=== PATIENT | female | born 1980 | race Caucasian/White ===

== ENCOUNTER 2016-06-16 11:23 | Outpatient (CLI) | payer OTHER | END 2016-06-16 11:24 | disposition home or self-care (01) | DX: N91.2 Amenorrhea, unspecified (principal) ==

== ENCOUNTER 2016-07-05 | Outpatient (CLI) | payer OTHER | END 2016-07-05 17:58 | disposition critical access hospital (66) | DX: O46.90 Antepartum hemorrhage, unspecified, unspecified trimester (principal) | CPT/HCPCS: A0425; A0427 ==

== ENCOUNTER 2016-07-05 11:27 | Emergency (ER) | payer OTHER | END 2016-07-05 14:57 | disposition home or self-care (01) | DX: O03.4 Incomplete spontaneous abortion without complication (principal) ==

== ENCOUNTER 2016-07-05 18:06 | Emergency (ER) | payer OTHER ==
[2016-07-05] MEDS ORDERED: SODIUM CHLORIDE 0.9% 1,000 ML IV ONE ×2 (18:25)
[2016-07-05] MEDS ORDERED: HYDROmorphone 1 MG/ML SYRINGE IVP STA (18:39)
[2016-07-05] MEDS ORDERED: HYDROmorphone 1 MG/ML SYRINGE ONE (18:39)
== END 2016-07-05 20:46 | disposition home or self-care (01) ==
DX: O03.9 Complete or unspecified spontaneous abortion without complication (principal)
CPT/HCPCS: 36415; 80048; 85025; 86850; 96374; 99284; J1170

== ENCOUNTER 2016-07-06 10:11 | Outpatient (CLI) | payer OTHER | END 2016-07-06 10:12 | disposition home or self-care (01) | DX: Z01.812 Encounter for preprocedural laboratory examination (principal); O03.4 Incomplete spontaneous abortion without complication; R10.2 Pelvic and perineal pain ==

== ENCOUNTER 2016-07-07 13:01 | Day surgery (SDC) | payer OTHER ==
[~2016-07-07 13:01] MED LIST: LACTATED RINGERS 1,000 ML IV ONE
[2016-07-07] MEDS ORDERED: LACTATED RINGERS 1,000 ML IV ONE (13:10)
[2016-07-07] MEDS ORDERED: ePHEDrine 50 MG/ML VIAL IVP ONE (14:30)
[2016-07-07] MEDS ORDERED: ONDANSETRON 4 MG/2 ML VIAL IVP ONE (14:30)
[2016-07-07] MEDS ORDERED: PROPOFOL 200 MG/20 ML VIAL IVP ONE (14:30)
[2016-07-07] MEDS ORDERED: KETOROLAC 30 MG/ML VIAL IVP ONE (14:30)
[2016-07-07] MEDS ORDERED: fentaNYL 100 MCG/2 ML VIAL IVP ONE (14:30)
[2016-07-07] MEDS ORDERED: MIDAZOLAM 2 MG/2 ML VIAL IVP ONE (14:30)
[2016-07-07] MEDS ORDERED: LIDOCAINE-MPF 2% 5 ML VIAL IM ONE (14:30)
[2016-07-07] MEDS ORDERED: MEPERIDINE 50 MG/ML SYRINGE ONE (15:04)
== END 2016-07-07 13:02 | disposition home or self-care (01) ==
PROC: 10D17ZZ Extraction of Products of Conception, Retained, Via Natural or Artificial Opening (ICD-10-PCS; principal; 2016-07-07 14:00)
DX: O03.1 Delayed or excessive hemorrhage following incomplete spontaneous abortion (principal); Z83.3 Family history of diabetes mellitus; Z80.8 Family history of malignant neoplasm of other organs or systems
CPT/HCPCS: 59812; 81003; 85025; J7120

== ENCOUNTER 2017-02-12 10:12 | Outpatient (CLI) | payer OTHER | END 2017-02-12 10:13 | disposition home or self-care (01) | LOC: LAB 10:12 | PROVIDERS: ATTEND Obstetrics & Gynecology | DX: Z32.01 Encounter for pregnancy test, result positive (principal) | CPT/HCPCS: 36415; 84702 ==

== ENCOUNTER 2017-02-13 08:17 | Outpatient (CLI) | payer OTHER ==
--- NOTE | 2017-02-13 10:18 | Ultrasound Report ---
PELVIC ULTRASOUND: 02/13/2017 CLINICAL INDICATION: , no IUP seen in office. TECHNIQUE: Transabdominal pelvic ultrasound performed for global evaluation. Transvaginal pelvic ul trasound performed for detailed evaluation. Real-time scanning performed and static images obtained. FINDINGS: The uterus is anteverted, measuring 11.3 x 4.8 x 6.5 cm. The endometrial echo complex vy sures 14 mm. There is no evidence of a gestational sac within the endometrial canal. The left ovary measures 4.4 x 3.6 x 2.8 cm, and demonstrates a 3.2 x 2.1 x 2.1 cm simple cyst as well as a possible tiny hemorrhagic cyst. The right ovary measures 2.0 x 1.4 x 1.2 cm, and appears unremarkable. Ther e is a hypoechoic region posterior to the uterus, to the right of midline, which appears to reside wi thin the cul-de-sac, which measures 3.4 x 2.6 x 2.3 cm. This does not represent the right ovary, and appears to contain a small fluid collection, suspicious for an ectopic gestation. No free fluid is seen. IMPRESSION: NO EVIDENCE OF AN INTRAUTERINE GESTATION. POSSIBLE ECTOPIC GESTATION IN THE RIGHT POSTE RIOR ADNEXA. CRITICAL RESULT: RESULTS CALLED TO DR. EPPERSON ON 02/13/2017 AT 9:55 A.M. JOB #: [id number] EXT JOB #:
[2017-02-13 11:38] LABS: HCT - HEMATOCRIT 37.6 % (37.0-47.0); HGB - HEMOGLOBIN 12.5 g/dL (12.0-16.0); MEAN CORPUSCULAR HEMOGLOBIN 29.3 pg (27.0-31.0); MEAN CORPUSCULAR HGB CONC 33.3 g/dL (32.0-36.0); MEAN PLATELET VOLUME 6.5 fL (7.9-10.8); RED BLOOD COUNT 4.27 10^6/uL (4.20-5.40); RED CELL DISTRIBUTION WIDTH 13.5 % (12.0-15.0); WHITE BLOOD COUNT 5.7 x10^3/uL (4.8-10.8)
[2017-02-13 11:48] LABS: ALBUMIN/GLOBULIN RATIO 1.8 (1.0-2.2); BILIRUBIN,TOTAL 0.5 mg/dL (0.2-1.0); CREATININE 0.6 mg/dL (0.4-1.0); POTASSIUM 3.8 mmol/L (3.5-5.0); TOTAL PROTEIN 6.8 g/dL (6.7-8.2)
== END 2017-02-13 08:18 | disposition home or self-care (01) ==
LOC: DI 08:17
PROVIDERS: ATTEND Obstetrics & Gynecology
DX: Z32.01 Encounter for pregnancy test, result positive (principal); O00.80 Other ectopic pregnancy without intrauterine pregnancy
CPT/HCPCS: 36415; 76830; 76856; 80053; 86850

== ENCOUNTER 2017-02-19 16:29 | Outpatient (CLI) | payer OTHER | END 2017-02-19 16:30 | disposition home or self-care (01) | LOC: LAB 16:29 | PROVIDERS: ATTEND Obstetrics & Gynecology | DX: O00.80 Other ectopic pregnancy without intrauterine pregnancy (principal) | CPT/HCPCS: 36415; 84702 ==

== ENCOUNTER 2017-02-22 12:10 | Outpatient (CLI) | payer OTHER | END 2017-02-22 12:11 | disposition home or self-care (01) | LOC: LAB 12:10 | PROVIDERS: ATTEND Obstetrics & Gynecology | DX: O00.80 Other ectopic pregnancy without intrauterine pregnancy (principal) | CPT/HCPCS: 36415; 84702 ==

== ENCOUNTER 2017-03-02 09:21 | Outpatient (CLI) | payer OTHER | END 2017-03-02 09:22 | disposition home or self-care (01) | LOC: LAB 09:21 | PROVIDERS: ATTEND Registered Nurse | DX: O00.80 Other ectopic pregnancy without intrauterine pregnancy (principal) | CPT/HCPCS: 36415; 84702 ==

== ENCOUNTER 2017-03-14 15:27 | Outpatient (CLI) | payer OTHER | END 2017-03-14 15:28 | disposition home or self-care (01) | LOC: LAB 15:27 | PROVIDERS: ATTEND Obstetrics & Gynecology | DX: O00.80 Other ectopic pregnancy without intrauterine pregnancy (principal) | CPT/HCPCS: 36415; 84702 ==

== ENCOUNTER 2017-04-11 09:15 | Outpatient (CLI) | payer OTHER | END 2017-04-11 09:16 | disposition home or self-care (01) | LOC: LAB 09:15 | PROVIDERS: ATTEND Obstetrics & Gynecology | DX: O00.80 Other ectopic pregnancy without intrauterine pregnancy (principal) | CPT/HCPCS: 36415; 84702 ==